=== PATIENT | female | born 2005 | race African-American/Black ===

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

== ENCOUNTER 2024-01-13 16:11 | Emergency (ER) | payer OTHER, SELFPAY ==
[2024-01-13 16:13] VITALS: BP 147/95; PULSE 86; PULSE 95; RESP 15; RESP 16; TEMP 36.4; O2SAT 97; O2SAT 98; BMI 39.6
--- NOTE | 2024-01-13 16:17 | EKG12_ITS ---
Test Reason : CP Blood Pressure : / mmHG Vent. Rate : 070 BPM Atrial Rate : 070 BPM P-R Int : 142 ms QRS Dur : 068 ms QT Int : 396 ms P-R-T Axes : 053 038 043 degrees QTc Int : 427 ms Normal sinus rhythm Normal ECG Confirmed by Anshul Bui ([id number]), supervising editor news reel MARVIN HYDE ([id number]) on 01/14/2024 11:04:43 AM Referred By: Confirmed By:Anshul Bui
--- NOTE | 2024-01-13 16:41 | RAD_ITS ---
INDICATION: chest pain EXAMINATION/TECHNIQUE: X-RAY - XR Chest 1 View COMPARISON: FINDINGS: LINES/DEVICES: None. LUNGS: No consolidation, edema or effusion. No pneumothorax. MEDIASTINUM AND CARDIOVASCULAR STRUCTURES: Cardiac silhouette not enlarged. Central airways and mediastinal contour are unremarkable. BONES AND SOFT TISSUES: Unremarkable. RAD/Chest 1 View (Portable) IMPRESSION: No radiographic evidence of acute cardiopulmonary disease. Electronically Signed: Stan Jhaveri DO at 16:58 EDT ,
[2024-01-13 16:51] LABS: Absolute Lymphocyte Count 2.87 X10^3/uL (0.83-4.51); Absolute Neutrophil Count 5.4 X10^3/uL (2.0-7.7); Basophil# 0.03 X10^3/uL; Basophil% 0.3 % (0-1); Eosinophil# 0.06 X10^3/uL; Eosinophils% 0.7 % (0-5); Hematocrit 42.1 % (37-47); Hemoglobin 13.6 g/dL (12.0-15.0); Lymphocyte # 2.87 X10^3/ul (0.83-4.51); Lymphocyte % 31.7 % (19-41); Mean Corp Hgb Conc 32.3 g/dL (32-36); Mean Corpuscular Hgb 27.2 pg (27.0-32.0); Mean Corpuscular Volume 84.2 fL (81-99); Mean Platelet Vol. 9.6 fl (6.2-12.0); Monocyte# 0.69 X10^3/uL; Monocyte% 7.6 % (0-10); NRBC Flagged by Analyzer 0 % (0-5); Neutrophil # 5.35 X10^3/uL (2.7-7.7); Neutrophil % 59.3 % (47-70); Platelet Count 378 K/mm3 (150-450); RBC Distribution Width CV 13.2 % (11.6-14.6); RBC Distribution Width SD 40.7 fl (35.1-43.9)
[2024-01-13 17:16] LABS: Anion Gap 4 (5-15); BUN 17 mg/dL (7-18); Chloride 110 mmol/L (98-107); Creatinine, Serum 1.13 mg/dL (0.55-1.02); EST Glomerular Filtration Rate 65 mL/min (>60); Est Glom Filt Rate - Afr Amer 79 mL/min (>60); Estimated Creatinine Clearance 84.42 ml/min; Glucose 117 mg/dL (74-106); Sodium Level 138 mmol/L (136-145); Troponin-I HS (w/2H Reflex) < 3 pg/mL (3.0-54.0)
--- NOTE | 2024-01-13 17:32 | ED.VIS.CHEST ---
HPI <DIAZ Bynum - Last Filed: 01/13/24 19:12> History of Present Illness Chief Complaint: Chest Pain Narrative Narrative: Patient is a 18-year-old female with history of asthma who does take oral control presenting to the emergency department for 2 episodes of left-sided sharp chest pain with shortness of breath. Patient states that the last 2 episodes of this she was walking, she developed sudden onset of left-sided chest pain with difficulty breathing. This lasted approximately 5 minutes. Patient states after the second 1, she still feels slightly shortness of breath. She denies any fever or chills. She was traveling 1.5 to 2 weeks ago to [place], she is here for evaluation. She denies any tobacco use. PFS <DIAZ Bynum - Last Filed: 01/13/24 19:12> [facility] Medical History (Updated 01/13/24 @ 19:11 by DIAZ Bynum) Asthma Kidney disease Home Medications albuterol 90 mcg/actuation aerosol inhaler mcg inhalation 05/28/22 [History Last Taken Unknown] amlodipine 5 mg tablet 5 mg PO DAILY 05/28/22 [History Last Taken Unknown] budesonide 0.5 mg/2 mL suspension for nebulization 0.5 mg inhalation DAILY 05/28/22 [History Last Taken Unknown] fluticasone propionate 110 mcg/actuation HFA aerosol inhaler 1 puff inhalation BID 05/28/22 [History Last Taken Unknown] ondansetron 4 mg disintegrating tablet 4 mg PO Q8H PRN nausea and vomiting #10 tabs 05/28/22 [Rx Last Taken Unknown] prednisone 20 mg tablet 40 mg (2 x 20 mg) PO DAILY 5 days #10 tabs 01/13/24 [Rx Last Taken Unknown] Allergy/AdvReac Type Severity Reaction Status Date / Time lactose Allergy Mild GI DISTRESS Verified 01/13/24 16:16 Social History Smoking Status: Never smoker ROS <DIAZ Bynum - Last Filed: 01/13/24 19:12> ROS ED ROS Narrative Constitutional: Negative for fever, chills, weight loss, weakness Eyes: Negative for vision loss, vision change, double vision ENT: Negative for any sore throat, ear pain, congestion Cardiovascular: Negative for any palpitations. Positive chest pain, tightness Respiratory: Negative for any cough, sputum production, hemoptysis, orthopnea. Positive dyspnea, dyspnea on exertion Gastrointestinal: Negative for any abdominal pain, nausea, vomiting, diarrhea, constipation, blood in stool, blood in vomit : Negative for any urinary frequency, dysuria, retention, blood in urine Muscle skeletal: Negative for any neck pain, back pain Neurological: Negative for any headache, syncope, dizziness Skin: Negative for any rashes, itching, abrasions, lacerations Psychiatric: Negative for any depression, anxiety, stress, suicidal ideation, homicidal ideation Hematologic: Negative for any excessive bruising, easy bleeding EXAM <DIAZ Bynum - Last Filed: 01/13/24 19:12> Physical Exam Narrative Exam Narrative: Vital signs reviewed. HEET: Head normocephalic atraumatic, TMs clear bilaterally. Posterior pharynx is clear, moist mucous membranes. Nares clear bilaterally. Neck: Supple with no lymphadenopathy or tenderness. No signs of meningismus. Cardiac: Regular rate and rhythm no murmurs gallops or rubs, equal peripheral pulses bilaterally. Respiratory: Slight rhonchorous breath sounds to the right lower lobe, remainder was clear.. No chest tenderness. Abdomen: Soft, nontender, nondistended. No abdominal bruit or pulsatile masses. No hepatosplenomegaly Extremities: No peripheral edema, no signs of gross trauma or deformity. Active full range of motion of all extremities. Neuro: Cranial nerves II through XII intact, no focal neurological deficits. Skin: Clean dry and intact with no rash, purpura, petechiae, vesicles or pustules. Backs/flank: No CVA tenderness, no midline spinal tenderness, no deformity. Psych: Normal mood and affect. No SI, HI or acute psychosis. Const Vital Signs: 01/13/24 16:13 01/13/24 16:13 01/13/24 17:45 Temperature 97.5 F L 97.5 F L Temperature Source Temporal Temporal Pulse Rate 86 95 Respiratory Rate 15 16 Blood Pressure 147/95 H 147/95 H Blood Pressure Mean 112 112 Pulse Ox 97 98 99 Oxygen Delivery Method Room Air Room Air Room Air 01/13/24 17:45 01/13/24 18:12 01/13/24 19:00 Temperature Temperature Source Pulse Rate 91 88 81 Respiratory Rate 18 22 H 16 Blood Pressure 178/81 H 160/81 H Blood Pressure Mean 113 107 Pulse Ox 95 Oxygen Delivery Method Room Air 01/13/24 19:35 Temperature 97.6 F L Temperature Source Pulse Rate 84 Respiratory Rate 17 Blood Pressure 160/81 H Blood Pressure Mean 107 Pulse Ox 95 Oxygen Delivery Method Positive well nourished and obese Nutritional Appearance: obese <Dr. Arash Donald DO - Last Filed: 01/13/24 20:30> Physical Exam Const Vital Signs: 01/13/24 16:13 01/13/24 16:13 01/13/24 17:45 Temperature 97.5 F L 97.5 F L Temperature Source Temporal Temporal Pulse Rate 86 95 Respiratory Rate 15 16 Blood Pressure 147/95 H 147/95 H Blood Pressure Mean 112 112 Pulse Ox 97 98 99 Oxygen Delivery Method Room Air Room Air Room Air 01/13/24 17:45 01/13/24 18:12 01/13/24 19:00 Temperature Temperature Source Pulse Rate 91 88 81 Respiratory Rate 18 22 H 16 Blood Pressure 178/81 H 160/81 H Blood Pressure Mean 113 107 Pulse Ox 95 Oxygen Delivery Method Room Air 01/13/24 19:35 Temperature 97.6 F L Temperature Source Pulse Rate 84 Respiratory Rate 17 Blood Pressure 160/81 H Blood Pressure Mean 107 Pulse Ox 95 Oxygen Delivery Method MDM <DIAZ Bynum - Last Filed: 01/13/24 19:12> MDM Lab Data Attestation: I reviewed the patient's lab results. Labs: Laboratory Results - last 24 hr 01/13/24 01/13/24 16:35 18:10 WBC 9.0 RBC 5.00 Hgb 13.6 Hct 42.1 MCV 84.2 MCH 27.2 MCHC 32.3 RDW Std Deviation 40.7 RDW Coeff of Kyler 13.2 Plt Count 378 MPV 9.6 Immature Gran % (Auto) 0.400 Neut % (Auto) 59.3 Lymph % (Auto) 31.7 Schleicher % (Auto) 7.6 Eos % (Auto) 0.7 Baso % (Auto) 0.3 Absolute Neuts (auto) 5.4 Absolute Lymphs (auto) 2.87 Nucleated RBC % 0 D-Dimer Quant (PE/DVT) 0.29 Sodium 138 Potassium 4.0 Chloride 110 H Carbon Dioxide 24.0 Anion Gap 4 L BUN 17 Creatinine 1.13 H Estim Creat Clear Calc 84.42 Est GFR (MDRD) Af Amer 79 Est GFR (MDRD) Non-Af 65 BUN/Creatinine Ratio 15.0 Glucose 117 H Calcium 9.0 Troponin I High Sens < 3 L Radiography Diagnostic Testing: Clinical Impression(s) from Imaging Studies Chest X-Ray 01/13/24 16:41 IMPRESSION: No radiographic evidence of acute cardiopulmonary disease. Electronically Signed: Stan Jhaveri DO at 16:58 EDT Reading Location ID and State: [facility] / [place] Tel [phone], Service support , EKG Normal sinus rhythm: Attestation: I personally reviewed and interpreted this EKG as follows: Comments: Normal sinus rhythm, rate of 70 bpm, MN 142 ms, QRS duration 68 ms, no acute ST elevation Treatment and Re-Evaluation :: Differential diagnosis includes however is not limited to: ACS, AL, PE, asthma exacerbation, muscle skeletal chest pain, chest wall pain Patient appears to be in no obvious respiratory distress vital signs are stable patient presents the emerged part with left-sided chest pain, shortness of breath. Secondary to the patient being on control as well as recent travel, I will rule the patient out for PE. Patient will receive a D-dimer. Patient's EKG was unremarkable. Patient's chest x-ray shows no radiographic evidence of any acute cardiopulmonary disease. This was interpreted the ER physician. Patient's CBC was unremarkable, chemistry shows slight increase in her creatinine at 1.13, glucose 117, troponin was negative. Patient will receive a D-dimer. IV fluids. Patient's D-dimer was negative at 0.29. At this time, do not believe the patient is suffering from any sort of ACS AL PE. Patient's heart score is 0. At this time, patient be given 40 mg of prednisone daily for 5 days, she instructed continue to use her inhaler and to follow-up outpatient. All questions were answered, she is agreeable, she is ambulatory, is happy and laughing on the phone. Patient stable for discharge. <Dr. Arash Donald, - Last Filed: 01/13/24 20:30> [employer] Narrative Medical decision making narrative: I have personally performed a face to face assessment of the patient and have reviewed the RUBEN Note. I performed a substantive portion of the visit including all aspects of the following. My wheeler findings include: History: Patient presents with chest pain that began yesterday. Patient states it has been intermittent. Patient states that last for approximately 5 minutes. Patient describes it as sharp. Patient states it is over the left side of her chest. Patient states it is worse with breathing. Patient admits to some nausea. Patient also admits to some shortness of breath and cough. Patient states she felt like her heart was racing today. Exam: Vital signs are stable. Patient is afebrile. Patient is in no acute distress. Oral mucosa is pink and moist. Neck is supple. Trachea is midline. There is no JVD. Heart was regular rate and rhythm. Lungs showed few expiratory wheezes. There is good respiratory effort noted. Abdomen is soft. Bowel sounds are normal. There is no tenderness. Extremities are intact. There is no calf tenderness or edema. Cranial nerves II through XII are intact. There are no focal motor or sensory deficits noted. Medical Decision Making: Differential diagnosis includes cardiac dysrhythmia, cardiac ischemia, pneumonia, asthma exacerbation, pulmonary embolism, electrolyte abnormality, and anxiety. EKG will be obtained to assess for cardiac dysrhythmia and cardiac ischemia. Chest x-ray will be obtained to assess for pneumonia and pneumothorax. CBC will be obtained to assess for leukocytosis and anemia. Basic metabolic profile will be obtained to assess for electrolyte abnormality and renal function. D-dimer will be obtained to assess for pulmonary embolism. Patient was given a DuoNeb aerosol here. Patient was also given an albuterol aerosol. EKG was obtained. On my independent interpretation, it showed a normal sinus rhythm with a rate of 70. MN interval, QRS interval, and QTc intervals were all normal. [place] was normal. There are no acute ST or T wave changes. Portable 1 view chest x-ray was obtained. On my independent interpretation, lung coronado are clear. There is normal cardiac silhouette. Bony thorax is normal. There is no acute process noted. Radiologist also interpreted the x-ray and agrees. CBC was reviewed and was within normal limits. Basic metabolic profile was reviewed and was within normal limits. Initial high-sensitivity troponin was reviewed and was less than 3. D-dimer was reviewed and was normal at 0.29. Patient was advised of her findings. Patient was instructed to follow-up with her primary care physician in 5 to 7 days. Patient understood and was agreeable with the plan. All questions were answered. Lab Data Labs: Laboratory Results - last 24 hr 01/13/24 01/13/24 16:35 18:10 WBC 9.0 RBC 5.00 Hgb 13.6 Hct 42.1 MCV 84.2 MCH 27.2 MCHC 32.3 RDW Std Deviation 40.7 RDW Coeff of Kyler 13.2 Plt Count 378 MPV 9.6 Immature Gran % (Auto) 0.400 Neut % (Auto) 59.3 Lymph % (Auto) 31.7 Schleicher % (Auto) 7.6 Eos % (Auto) 0.7 Baso % (Auto) 0.3 Absolute Neuts (auto) 5.4 Absolute Lymphs (auto) 2.87 Nucleated RBC % 0 D-Dimer Quant (PE/DVT) 0.29 Sodium 138 Potassium 4.0 Chloride 110 H Carbon Dioxide 24.0 Anion Gap 4 L BUN 17 Creatinine 1.13 H Estim Creat Clear Calc 84.42 Est GFR (MDRD) Af Amer 79 Est GFR (MDRD) Non-Af 65 BUN/Creatinine Ratio 15.0 Glucose 117 H Calcium 9.0 Troponin I High Sens < 3 L Radiography Diagnostic Testing: Clinical Impression(s) from Imaging Studies Chest X-Ray 01/13/24 16:41 IMPRESSION: No radiographic evidence of acute cardiopulmonary disease. Electronically Signed: Stan Jhaveri DO at 16:58 EDT Reading Location ID and State: [facility] / [place] Tel [phone], Service support , Discharge Plan Triage Chief Complaint: Chest Pain ED Midlevel Provider: Arnold Burnett ED Provider: Arash Donald Dx/Rx/DC Orders Clinical Impression: Shortness of breath, Chest pain Instructions: Asthma Dx, ED Chest Pain, Uncertain Cause Prescriptions: New prednisone 20 mg tablet 40 mg PO DAILY 5 Days Qty: 10 0RF No Action amlodipine 5 mg Tablet 5 mg PO DAILY budesonide 0.5 mg/2 mL Suspension For Nebulization 0.5 mg INHALATION DAILY albuterol 90 mcg/actuation Aerosol INHALATION fluticasone propionate [Flovent] 110 mcg/actuation Hfa Aerosol Inhaler 1 puff INHALATION BID ondansetron 4 mg tablet,disintegrating 4 mg PO Q8H PRN (Reason: nausea and vomiting) Qty: 10 0RF Primary Care Provider: LEE ANN CHADWICK Referrals: LE EANN CHADWICK [Other] Activity Restrictions/Additional Instructions: Please follow-up outpatient. Disposition Disposition: Home, Self Care Discharge Date/Time: 01/13/24 19:36
[2024-01-13] MEDS: Ipratropium/Albuterol Sulfate 3 ML AMPUL.NEB INHALATION (17:42)
[2024-01-13] MEDS: Albuterol 2.5 MG/3 ML VIAL.NEB. INHALATION (17:42)
[2024-01-13 17:45] VITALS: PULSE 91; RESP 18; O2SAT 99
[2024-01-13] MEDS: 0.9% Normal Saline (1000mL) 1,000 ML 999 ML IV (18:11)
[2024-01-13 18:12] VITALS: BP 178/81; PULSE 88; RESP 22
[2024-01-13 18:35] LABS: D-Dimer Quantitative (DVT/PE) 0.29 FEU/ug/m (0.27-0.49)
[2024-01-13 18:48] LABS: Reflex Troponin-HS? (from REC) Y
[2024-01-13 19:00] VITALS: BP 160/81; PULSE 81; RESP 16; O2SAT 95
[2024-01-13 19:35] VITALS: BP 160/81; PULSE 84; RESP 17; TEMP 36.4; O2SAT 95
== END 2024-01-13 19:36 | disposition home or self-care (01) ==
PROVIDERS: Nurse Practitioner; Emergency Provider Emergency Medicine; Visit Provider Emergency Medicine
DX: R06.02 Shortness of breath (principal); R07.9 Chest pain, unspecified; R11.0 Nausea; J45.909 Unspecified asthma, uncomplicated
CPT/HCPCS: 71045; 80048; 84484; 85025; 85379; 93005; 94640; 96360; 99284; J7030; A4216

== ENCOUNTER 2024-06-10 20:22 | Emergency (ER) | payer OTHER, SELFPAY ==
[2024-06-10 20:24] VITALS: BP 167/109; PULSE 98; RESP 18; TEMP 36.5; O2SAT 99; BMI 41.7
[2024-06-10] MEDS: Lidocaine 1% (20 ml mdv) 20 ML Vial 10 ML INFILT (20:49)
--- NOTE | 2024-06-10 21:26 | EX.ED.UPPERE ---
HPI History of Present Illness HPI Narrative: Cutting corn with a knife and excellently lacerated her right thumb palmar aspect about 2 hours ago. Tetanus up-to-date. Chief Complaint: Laceration Informant: patient Occured/Mechanism Mechanism/Context: Yes injury Onset/Context/Timing Onset: Today and Hours Context: Sudden Onset Timing: Continuous Quality of Pain: Sharp Current Severity: Mild Maximum Severity: Mild Narrative Narrative: Healthy 19-year-old female history of hypertension chronic kidney disease. Lacerated her right thumb palmar aspect while cutting corn. Tetanus Immunization: 5-10 years Prior similar symptoms: No Recent Illness/Hospitalization: No PFSH PFS Medical History ACL (anterior cruciate ligament) tear Kidney disease Asthma Home Medications ?Medication ?Instructions ?Recorded ?Last Taken ?Type albuterol 90 mcg/actuation aerosol mcg inhalation 05/28/22 Unknown History inhaler amlodipine 5 mg tablet 5 mg PO DAILY 05/28/22 Unknown History budesonide 0.5 mg/2 mL suspension 0.5 mg inhalation DAILY 05/28/22 Unknown History for nebulization fluticasone propionate 110 1 puff inhalation BID 05/28/22 Unknown History mcg/actuation HFA aerosol inhaler ondansetron 4 mg disintegrating 4 mg PO Q8H PRN nausea and 05/28/22 Unknown Rx tablet vomiting #10 tabs prednisone 20 mg tablet 40 mg (2 x 20 mg) PO DAILY 5 days 01/13/24 Unknown Rx #10 tabs Allergy/AdvReac Type Severity Reaction Status Date / Time lactose Allergy Mild GI DISTRESS Verified 06/10/24 20:53 Surgical History History of placement of ear tubes History of adenectomy Social History Smoking Status: Never smoker ROS ROS ED ROS Narrative Denies recent illness. Constitutional Constitutional ED: Denies fever(s) Eyes Eyes: Denies blurry vision ENT ENT ED: Denies ear pain Cardiovascular Cardiovascular: Denies chest pain Respiratory/Chest Respiratory/Chest: Denies cough or dyspnea Gastrointestinal Gastrointestinal: Denies abdominal pain Genitourinary Genitourinary ED: Denies dysuria Musculoskeletal Musculoskeletal: Denies back pain Integumentary Denies abscess Psychiatric Psychiatric: Denies anxiety or depression Endocrine Endocrinology: Denies cold intolerance Hematologic/Lymphatic Hematologic/Lymphatic: Denies easy bleeding Allergic/Immunologic Allergic/Immunologic ED: Denies mouth swelling EXAM Physical Exam Narrative Exam Narrative: Well-appearing 19-year-old female. Vital signs stable afebrile. H EENT exam unremarkable. Lungs clear. Heart regular rhythm rate about 90 no murmur. Chest wall ribs nontender. Abdomen soft nontender. Moving all 4 extremities. Neurovascular intact. She has a flap laceration right thumb palmar aspect midportion. She has full flexion extension all digits of the right hand. Full flexion extension of right thumb. No infection. No foreign body. There is small arterial bleeding. There is no involvement of the digital nerve or artery. No tendon or joint involvement. Normal sensation distally and cap refill. Otherwise exam unremarkable. Const Vital Signs: 06/10/24 20:24 Temperature 97.7 F L Temperature Source Temporal Pulse Rate 98 Respiratory Rate 18 Blood Pressure 167/109 H Blood Pressure Mean 128 Pulse Ox 99 Oxygen Delivery Method Room Air Positive well nourished and well developed; Negative for cachectic, contractures or unkempt General Appearance ED: well developed and NAD; Negative for unkempt, cachectic, contractures, cyanotic or diaphoretic Nutritional Appearance: Negative for cachectic HEENT Reports moist mucous membranes normocephalic and atraumatic; Negative for trauma or tenderness Eyes PERRL and EOMs intact bilaterally Neck full ROM and supple General: Negative for tenderness Lymph Lymphatic: Negative for other Chest Wall inspection of chest normal and palpation of chest normal Resp normal respiratory effort and clear to auscultation bilaterally Effort and Inspection: Negative for pain with movement Auscultation: Negative for rales, rhonchi, wheezes or diminished lung sounds Cardio regular rate, regular rhythm, S1 normal heart sound, S2 normal heart sound and no murmurs GI non-tender, non-distended and no masses Palpation: soft; Negative for tender, guarding or rebound tenderness present Back/Spine no CVA tenderness Extremity normal to inspection and full ROM Extremity Narrative: Except right thumb flap laceration palmar aspect midportion of the thumb. Neurovascularly intact with full range of motion. Full flexion extension. Small arterial bleed. No infection. No foreign body. No involvement of the bone joint or tendon or muscle. Distally normal cap refill and touch sensation. General Extremety ED: Negative for edema General Extremity: Negative for edema Neuro oriented x3, CN's II-XII intact bilaterally, moves all extremities, no focal motor deficits and no sensory deficits noted Sensorium / Orientation: alert, oriented to person, oriented to place and oriented to time; Negative for orientation impaired, lethargic or stuporous Motor Exam: strength 5/5 throughout Psych mental status grossly normal Appearance: Negative for unkempt Attitude: No agitated Mood & Affect: Negative for depressed or anxious Skin General Skin Exam: Negative for petechiae Lesions: no lesions Rashes: no rashes Trauma: laceration MDM MDM MDM Narrative Medical decision making narrative: 19-year-old right thumb laceration. Digital block. Cleaned with Shur-Clens. Washed with saline. Explored. Placed 6 simple interrupted 5-0 Ethilon sutures around the flap laceration. Tacked down well. Good hemostasis and wound closure. Patient was instructed on wound care and the concern of a flap laceration. Stitches out in 10 days. Will be cleaned and dressed by nursing. Tetanus is up-to-date. History & Record Review Discussion w/independent historian: Patient Procedures Lacerations Right thumb flap laceration repair:: Length: 1.38 in Depth: Sub Q Shape: Flap Prep: Shure-Clens Laceration repair: Digital block, Lidocaine, Skin sutures and Wound explored Number of Sutures/Shahida: 6 Suture Information: Ethilon, Simple and 5-0 Discharge Plan Triage Chief Complaint: Laceration ED Provider: Rafi Yen Dx/Rx/DC Orders Clinical Impression: Laceration of thumb Instructions: ED Laceration, Hand: All Closures Prescriptions: No Action amlodipine 5 mg Tablet 5 mg PO DAILY budesonide 0.5 mg/2 mL Suspension For Nebulization 0.5 mg INHALATION DAILY albuterol 90 mcg/actuation Aerosol INHALATION fluticasone propionate [Flovent] 110 mcg/actuation Hfa Aerosol Inhaler 1 puff INHALATION BID ondansetron 4 mg tablet,disintegrating 4 mg PO Q8H PRN (Reason: nausea and vomiting) Qty: 10 0RF prednisone 20 mg tablet 40 mg PO DAILY 5 Days Qty: 10 0RF Primary Care Provider: LEE ANN CHADWICK Referrals: LEE ANN CHADWICK [Other] Activity Restrictions/Additional Instructions: Keep your thumb clean and dry. If our dressing stays clean and dry you can leave it on for 3 to 4 days. Then take it off and start cleaning it daily. Soap and water or peroxide and water. Dry thoroughly. Apply antibiotic ointment once a day when she started changing the dressing. Ice and elevate to decrease pain and swelling. Tylenol for pain. Stitches out in 10 days. They can be taken out by the [facility], your mom or we can do it here. Any signs of infection such as redness, increased swelling, fever or streaks return. Print Language: Welsh Disposition Disposition: Home, Self Care
== END 2024-06-10 21:43 | disposition home or self-care (01) ==
PROVIDERS: Emergency Provider Emergency Medicine; Visit Provider Emergency Medicine
DX: S61.011A Laceration without foreign body of right thumb without damage to nail, initial encounter (principal); I12.9 Hypertensive chronic kidney disease with stage 1 through stage 4 chronic kidney disease, or unspecified chronic kidney disease; N18.9 Chronic kidney disease, unspecified; W26.0XXA Contact with knife, initial encounter; Y93.G1 Activity, food preparation and clean up; J45.909 Unspecified asthma, uncomplicated; Z79.899 Other long term (current) drug therapy; Z79.51 Long term (current) use of inhaled steroids
CPT/HCPCS: 12002; 99283